=== PATIENT | female | born 1970 | race Caucasian/White ===

== ENCOUNTER 2020-11-20 02:17 | Inpatient (IN) | payer BC, OTHER ==
[~2020-11-20] VITALS: Ht 157.5 cm; Wt 106.4 kg
[2020-11-20 03:53] LABS: RED BLOOD COUNT 4.69 M/UL (4.00-5.10); WHITE BLOOD COUNT 9.4 K/UL (4.5-11.0)
[2020-11-20 04:24] LABS: BUN/CREATININE RATIO 16 (0-10)
[2020-11-21] MEDS ORDERED: ELIQUIS5 MG PO (10:02)
[2020-11-21] MEDS ORDERED: ELIQUIS 5 MG TAB5 MG PO (10:02)
--- NOTE | 2020-11-21 13:59 | NUR ---
NO CHANGE FROM PREVIOUS ASSESSMENT
[2020-11-22 08:14] LABS: SARS COV-2 IGG AB Negative (Negative)
[2020-11-22 15:09] LABS: SARS COV-2 IGM AB Negative (Negative)
== END 2020-11-21 15:14 | disposition home or self-care (01) | DRG 176 ==
LOC: ER1 02:17 → CDU 08:32 → PROG CARE 19:59
PROVIDERS: Family Medicine; Nurse Practitioner Family; ADMIT Internal Medicine
PROC: B24BZZ4 Ultrasonography of Heart with Aorta, Transesophageal (ICD-10-PCS; principal; 2020-11-20)
DX: I26.93 Single subsegmental thrombotic pulmonary embolism without acute cor pulmonale (principal); I10 Essential (primary) hypertension; E78.5 Hyperlipidemia, unspecified; Z20.822 Contact with and (suspected) exposure to COVID-19; Z87.442 Personal history of urinary calculi; Z82.3 Family history of stroke
CPT/HCPCS: ECHO; 36415; 71046; 80053; 82550; 82553; 83874; 84484; 85025; 86769; 93005; 93306; 93970; 96372; 96374; 96375; 99285; J1650; J2270; J2405; Q9967; U0002